=== PATIENT | female | born 1955 ===

== ENCOUNTER 2025-07-22 12:00 | Inpatient (IN) | payer OTHER ==
[~2025-07-22] VITALS: Ht 165.1 cm; Wt 54.4 kg
[2025-07-22] MEDS ORDERED: TOPROL XL100 M1 PO (14:19)
[2025-07-22] MEDS ORDERED: ATORVASTATIN CA10 MG PO (14:19)
[2025-07-22] MEDS ORDERED: HYDROCHLOROTHIA50 MG (14:21)
[2025-07-22] MEDS ORDERED: AVAPRO300 MG (14:24)
[2025-07-22 14:27] VITALS: BP 145/78
[2025-07-29] MEDS ORDERED: CEFTRIAXONE SODIUM 2,000 MG VIAL ONE (05:51)
[2025-07-29] MEDS ORDERED: METRONIDAZOLE/SODIUM CHLORIDE 500 MG/100 ML PIGGYBACK IV ONE (05:51)
[2025-07-29] MEDS ORDERED: BUPIVACAINE HCL/MPF 0.5% 30ML VIAL ONE (07:19)
[2025-07-29] MEDS ORDERED: LIDOCAINE HCL 1%/EPINEPHRINE 20ML VIAL IJ ONE (07:19)
[2025-07-29] MEDS ORDERED: SUGAMMADEX SODIUM 200 MG/2 ML VIAL IV ONE (09:55)
[2025-07-29] MEDS ORDERED: OxyCODONE HCL 5 MG TABLET (ROXICODONE) PO PRN (10:15)
[2025-07-29] MEDS ORDERED: RINGERS SOLUTION,LACTATED 1,000 ML IV SCH (10:15)
[2025-07-29] MEDS ORDERED: MORPHINE SULFATE 4 MG/ML CARTRIDGE IV PRN (10:15)
[2025-07-29] MEDS ORDERED: ONDANSETRON HCL 2 MG/ML VIAL IV PRN (10:15)
[2025-07-29 11:49] LABS: BASO % 0.5 % (0.1-1.2); EOS # 0.05 (0.04-0.54); EOS % 0.7 % (0.7-7.0); LYMPH # 1.49 (1.18-3.74); LYMPH % 19.9 % (19.3-53.1); MEAN PLATELET VOLUME 8.70 fl (9.4-12.4); MONO # 0.66 (0.24-0.82); MONO % 8.8 % (4.7-12.5); NEUT # 5.21 (1.56-6.13); NEUT % 69.8 % (34.0-71.1); RED CELL DISTRIBUTION WIDTH 11.9 % (11.6-14.4)
[2025-07-29] MEDS ORDERED: SIMETHICONE 125 MG CAPSULE PO SCH (13:00)
[2025-07-29] MEDS ORDERED: HYOSCYAMINE SULFATE 0.125 MG TAB.SUBL SL SCH (13:00)
[2025-07-29] MEDS ORDERED: ACETAMINOPHEN 500 MG GEL..CAP PO SCH (14:00)
[2025-07-29] MEDS ORDERED: METOCLOPRAMIDE HCL 5 MG/ML VIAL ONE (15:27)
[2025-07-29] MEDS ORDERED: GABAPENTIN 300 MG CAPSULE PO ONE (15:27)
[2025-07-29] MEDS ORDERED: GABAPENTIN 300 MG CAPSULE PO SCH (17:00)
[2025-07-29] MEDS ORDERED: METOCLOPRAMIDE HCL 5 MG/ML VIAL IV SCH (17:00)
[2025-07-29 17:30] VITALS: BP 116/68; O2SAT 95
[2025-07-29] MEDS ORDERED: FAMOTIDINE/PF 20 MG/2 ML VIAL IV PUSH SCH (21:00)
[2025-07-29] MEDS ORDERED: CELECOXIB 200 MG CAPSULE PO SCH (21:00)
[2025-07-30 00:30] VITALS: BP 106/68; O2SAT 98
[2025-07-30] MEDS ORDERED: ENALAPRILAT DIHYDRATE 1.25 MG/ML VIAL IV PRN (01:00)
[2025-07-30 06:24] LABS: BASO % 0.3 % (0.1-1.2); EOS # 0.11 (0.04-0.54); EOS % 1.2 % (0.7-7.0); LYMPH # 1.12 (1.18-3.74); LYMPH % 11.9 % (19.3-53.1); MEAN PLATELET VOLUME 9.00 fl (9.4-12.4); MONO # 0.53 (0.24-0.82); MONO % 5.6 % (4.7-12.5); NEUT # 7.62 (1.56-6.13); NEUT % 80.8 % (34.0-71.1); RED CELL DISTRIBUTION WIDTH 11.8 % (11.6-14.4)
[2025-07-30 07:05] LABS: BUN CREA RATIO 17.0 (7.0-25.0); CREATININE SERUM 0.66 mg/dL (0.55-1.02); GFR 89.33; GLUCOSE FASTING 92.0 mg/dL (65-100); OSMOLALITY SERUM 271.0 MOSM/KG (275-295)
[2025-07-30] MEDS ORDERED: HYDROCHLOROTHIAZIDE 12.5 MG CAPSULE PO SCH (09:00)
[2025-07-30] MEDS ORDERED: LACTOBACILLUS ACIDOPHILUS 1 CAP CAP PO SCH (09:00)
[2025-07-30] MEDS ORDERED: FOLIC ACID 1 MG TABLET PO SCH (09:00)
[2025-07-30] MEDS ORDERED: FERROUS SULFATE 325 MG TABLET.EC PO SCH (09:00)
[2025-07-30] MEDS ORDERED: CYANOCOBALAMIN (VITAMIN B-12) 1,000 MCG TABLET PO SCH (09:00)
[2025-07-30] MEDS ORDERED: IRBESARTAN 300 MG TABLET PO SCH (09:00)
[2025-07-30] MEDS ORDERED: METOPROLOL SUCCINATE 50 MG TAB.SR.24H PO SCH (09:00)
[2025-07-30 09:03] VITALS: BP 107/56; O2SAT 96
[2025-07-30 16:16] VITALS: BP 121/77; O2SAT 96
[2025-07-30] MEDS ORDERED: ROSUVASTATIN CALCIUM 10 MG TABLET PO SCH (17:00)
[2025-07-30] MEDS ORDERED: ENOXAPARIN SODIUM 40 MG/0.4 ML SYRINGE SUBCUTANEO SCH (17:00)
[2025-07-31 00:35] VITALS: BP 127/78; O2SAT 97
[2025-07-31 08:54] VITALS: BP 151/81; O2SAT 99
[2025-07-31] MEDS ORDERED: ENOXAPARIN SODIUM 40 MG/0.4 ML SYRINGE SUBCUTANEO SCH (09:00)
[2025-07-31] MEDS ORDERED: PAIN RELIEVER500 M2 PO (11:40)
[2025-07-31] MEDS ORDERED: GABAPENTIN300 MG PO (11:40)
== END 2025-07-31 12:17 | disposition home or self-care (01) | DRG 331 ==
LOC: O/R 07-29 06:00 → SURH 07-29 12:00
PROVIDERS: ADMIT Surgery; ATTEND Surgery
PROC: 07BB4ZZ Excision of Mesenteric Lymphatic, Percutaneous Endoscopic Approach (ICD-10-PCS; 2025-07-29)
PROC: 0DTF4ZZ Resection of Right Large Intestine, Percutaneous Endoscopic Approach (ICD-10-PCS; principal; 2025-07-29 16:00)
DX: D12.2 Benign neoplasm of ascending colon (principal); D37.4 Neoplasm of uncertain behavior of colon